=== PATIENT | male | born 1990 | race Caucasian/White ===

== ENCOUNTER → 2019-01-14 07:00 | Outpatient (CLI) | payer OTHER, SELFPAY ==
--- NOTE | 2019-01-14 | DI.ECHO.S_ITS ---
[facility] +---------+ : : [address] : : : : [id number] : : : : Phone: [phone]+ Echocardiogram Report + + :Name: ARACELY CHANCE Study Date: 01/14/2019 Height: 67 in : :[facility] Exam Location: [facility] Weight: 175 lb : : Gender: Male BSA: 1.9 m2 : :: 1990 Age: 28 yrs BP: 115/85 mmHg: :Reason For Study: Palpitations : : Performed By: Carlene Page : :Referring: [email or web address] : + + Interpretation Summary Ordering Doctor is Dr. Brewer Said 1) Normal left ventricular thickness, size, wall motion, and systolic function (EF 60-65%). 2) Normal right ventricular size and function. 3) No significant valvular abnormalities. 4) No prior Echo available for comparison. Procedure: A two-dimensional transthoracic echocardiogram with color flow and Doppler was performed. The study quality was technically good. There is no prior echocardiogram noted for this patient. The patient was in normal sinus rhythm during the exam. Left Ventricle: The left ventricle is normal in size, wall thickness, and systolic function without any focal wall motion abnormalities. The ejection fraction is estimated to be 60-65%. Diastolic parameters suggest probable normal left ventricular diastolic function and normal filling pressures. Right Ventricle: The right ventricle is normal in size and function. Atria: The left atrium is mildly dilated. Right atrial size is normal. There is no Doppler evidence for an interatrial shunt. Mitral Valve: The mitral valve is normal in structure and function. There is trace mitral regurgitation. Aortic Valve: The aortic valve is trileaflet. The aortic valve opens well. There is no aortic valve stenosis. No aortic regurgitation is present. Tricuspid Valve: The tricuspid valve is normal in structure and function. There is a trace or physiologic amount of tricuspid regurgitation. The right ventricular systolic pressure is estimated to be at least 20 mmHg based on an estimated right atrial pressure of 3 mm Hg. Pulmonic Valve: The pulmonic valve is not well seen, but is grossly normal. There is trace pulmonic regurgitation. Great Vessels: The aortic root is normal size. The dimensions of the ascending aorta are normal. The aortic arch is normal in size. The pulmonary artery is normal size. The IVC is of normal diameter and collapses greater than 50% with a sniff. This suggests a low right atrial pressure of 3 mm Hg. Pericardium/ Pleura There is no pericardial effusion. There is no pleural effusion. MMode/2D Measurements & Calculations LVIDd: 4.7 cm LVOT diam: 2.3 cm LVIDs: 3.0 cm Ao root diam: 3.1 cm FS: 35.6 % asc Aorta Diam: 2.8 cm EPSS: 0.00 cm Ao Arch Diam (Prox Trans): 2.5 cm IVSd: 0.83 cm LVPWd: 0.91 cm LV conner. diameter/BSA (cm/m^2): 2.5 LV sys. diameter/BSA (cm/m^2): 1.6 LA A2 area: 22.8 cm2 RA long axis: 4.5 cm LA A4 area: 20.7 cm2 RA area: 16.6 cm2 LA length (vol): 6.2 cm RA vol: 51.9 ml LA vol: 64.6 ml RA : 27.1 ml/m2 LA vol index: 33.8 ml/m2 IVC diam: 1.5 cm RVD1 (basal): 3.9 cm Doppler Measurements & Calculations Ao V2 max: 112.7 cm/sec LVOT Max Sukhwinder: 97.6 cm/sec Ao V2 mean: 77.2 cm/sec LV V1 max P.8 mmHg Ao max P.1 mmHg LV V1 VTI: 20.1 cm Ao mean P.7 mmHg CALISTA(I,D): 3.4 cm2 Ao V2 VTI: 24.4 cm CALISTA(V,D): 3.6 cm2 sev ratio: 0.83 CALISTA indexed to BSA (cm^2/m^2): 1.8 MV E max sukhwinder: 85.2 cm/sec TR max sukhwinder: 206.1 cm/sec MV A max sukhwinder: 45.1 cm/sec TR max P.0 mmHg MV E/A: 1.9 Med Peak E' Sukhwinder: 12.2 cm/sec E/E' med: 7.0 Lat Peak E' Sukhwinder: 16.2 cm/sec E/E' lat: 5.3 E/e' average: 6.1 MV dec time: 0.18 sec MV P1/2t: 52.9 msec MV P1/2t max sukhwinder: 86.0 cm/sec SV(LVOT): 82.8 ml MVA(P1/2t): 4.2 cm2 Reading Physician:09:43 AM
== END ==
DX: R00.2 Palpitations (principal)
CPT/HCPCS: 93306